=== PATIENT | female | born 1945 | race Caucasian/White ===

== ENCOUNTER 2018-12-14 09:11 | Emergency (ER) | payer MEDICARE, BC ==
--- OUTSIDE RECORDS SUMMARY | 2018-12-14 09:18 | XMS REPORT | Summary of Care ---
:1945 Author Organization [facility] Address [address] [address] Care Team Providers Name Role Phone Marva Penny MD Primary Care Provider Reason for Visit Reason Comments Physical pap 11-27-13, mammo 08-02-16, dexa 12-16-15, colonoscopy 02-02-11 repeat 5 years Proteinuria f/u Encounter Details Date Type Department Care Team Description 11/07/2018 Office Visit [place] [facility] Marva Penny MD Proteinuria, unspecified type (Primary Dx); Medicine [address] Malignant neoplasm of right female breast, unspecified estrogen receptor status, unspecified site of breast (HCC); [address] [place] [address] Routine general medical examination at a health care facility; [place] [address] Encounter for gynecological examination; [phone] Encounter for screening for malignant neoplasm of breast; (Fax) Lipid disorder Allergies Active Allergy Reactions Severity Noted Date Comments Demerol 12/13/2007 documented as of this encounter (statuses as of 11/07/2018) Medications Medication Sig Dispensed Refills Start Date End Date Status GLUCOSAMINE CHONDROITIN Take by mouth 0 Active Oral Tab DAILY. Probiotic Product Take 1 Cap by 0 Active (PROBIOTIC ADVANCED PO) mouth DAILY. Cholecalciferol (VITAMIN Take by mouth 0 Active D-3) 1000 UNITS Oral Cap DAILY. raNITIdine HCl Take by mouth. 0 Active (RANITIDINE 75 PO) fexofenadine (EBONY Take 180 mg by 0 Active ALLERGY) 180 MG Oral Tab mouth DAILY. documented as of this encounter (statuses as of 11/07/2018) Active Problems Problem Noted Date Malignant neoplasm of female breast 06/04/2016 Overview: Stage !A- Right breast - lymphnode negative 6mm CO/ ER post - Refused radiation / tried and refused Aromatase I Started with [facility] but does not see reasont to go back Will need follow up mammogram / annual CXR - blood work Lung nodules 06/04/2016 Overview: 02/26 - Ct scan 3mm right lower lobe nodule / 2mm left lower lobe - - By lopez recommendation no follow up in low risk situtaion - Vitamin D deficiency 12/20/2007 Family history of colon cancer 12/13/2007 ELEVATED HDL 12/13/2007 documented as of this encounter (statuses as of 11/07/2018) Immunizations Name Administration Dates Next Due TDAP Vaccine 10/27/2009 documented as of this encounter Social History Tobacco Use Types Packs/Day Years Used Date Never Smoker Smokeless Tobacco: Never Used Alcohol Use Drinks/Week oz/Week Comments No Sex Assigned at Date Recorded Not on file Job Start Date Occupation Industry Not on file Not on file Not on file Travel History Travel Start Travel End No recent travel history available. documented as of this encounter Last Filed Vital Signs Vital Sign Reading Time Taken Comments Blood Pressure 137/86 11/07/2018 10:12 AM EDT Pulse 72 11/07/2018 10:12 AM EDT Temperature - - Respiratory Rate - - Oxygen Saturation 97% 11/07/2018 10:12 AM EDT Inhaled Oxygen Concentration - - Weight 57.2 kg (126 lb) 11/07/2018 10:12 AM EDT Height 163.8 cm (5' 4.5") 11/07/2018 10:12 AM EDT Body Mass Index 21.29 11/07/2018 10:12 AM EDT documented in this encounter Patient Instructions Patient InstructionsMarva Penny MD - 11/07/2018 10:00 AM EDTSteroid nasal spray (flonase ) - Try for 1 week or inhalers- E.g. Budesonide Heart healthy lifestyle- Exercise- minimum of 40 min 4 x week- do some thing you like to do ; strength and balance training Good night sleep - average person needs 8 hr Eat smart- watch cholesterol - dont overdo the carbs Smile!!!! Good spirit makes endorphins and all the rest work and worthwhile documented in this encounter Progress Notes Marva Penny MD - 11/07/2018 10:00 AM EDT PATIENT: Song Knox DATE: 11/07/2018 Song Knox is a 73-y.o. female presents for routine physical exam and Also, she has additional complaints of 1. Taking pumpkin seed extract for bladder incontinence ( AZO) 2. Chronic cough - Went to [facility]- no allergy found- Was tried on omeprazole - Ranitidine - did not help cough 3. Stress incontinence to cough- trial of ebony - - has tried others with temporary help only - Does not cough at night- Coughs when talks / laughs Has post nasal drip - Was tried on ipatroprium / inhalers - but no steroid nasal spray . Patient Active Problem List Diagnosis Family history of colon cancer ELEVATED HDL Vitamin D deficiency Malignant neoplasm of female breast (HCC) Lung nodules Exercize No MALONEY. No cardiopulmonary symptoms as dyspnea, cough. palpitations, or chest pain on exertion. No upper or lower GI complaints as heartburn, abdominal pain, change in bowel habits, black or bloody stools. No urinary tract symptoms or incontinence. No symptoms as nocturia, discharge No bruising/ bleeding. No neurological complaints as dysphagia, imbalance, vertigo , focal weakness. No insomnia.+ Rested after nights sleep. No depression. Does not stop breathing at night. Current Outpatient Medications Medication Sig Cholecalciferol (VITAMIN D-3) 1000 UNITS Oral Cap Take by mouth DAILY. fexofenadine (EBONY ALLERGY) 180 MG Oral Tab Take 180 mg by mouth DAILY. GLUCOSAMINE CHONDROITIN Oral Tab Take by mouth DAILY. Probiotic Product (PROBIOTIC ADVANCED PO) Take 1 Cap by mouth DAILY. raNITIdine HCl (RANITIDINE 75 PO) Take by mouth. No current facility-administered medications for this visit. Social History Socioeconomic History Marital status: Spouse name: Not on file Number of children: Not on file Years of education: Not on file Highest education level: Not on file Occupational History Not on file Social Needs Financial resource strain: Not on file Food insecurity: Worry: Not on file Inability: Not on file Transportation needs: Medical: Not on file Non-medical: Not on file Tobacco Use Smoking status: Never Smoker Smokeless tobacco: Never Used Substance and Sexual Activity Alcohol use: No Drug use: No Sexual activity: Yes Partners: Male Lifestyle Physical activity: Days per week: Not on file Minutes per session: Not on file Stress: Not on file Relationships Social connections: Talks on phone: Not on file Gets together: Not on file Attends voodoo service: Not on file Active member of club or organization: Not on file Attends meetings of clubs or organizations: Not on file Relationship status: Not on file Intimate partner violence: Fear of current or ex partner: Not on file Emotionally abused: Not on file Physically abused: Not on file Forced sexual activity: Not on file Other Topics Concern Not on file Social History Narrative Not on file Family History Problem Relation Age of Onset Cancer Father LUNG OBJECTIVE: BP 137/86 | Pulse 72 | Ht 5' 4.5" (1.638 m) | Wt 126 lb (57.2 kg) | SpO2 97 % | BMI 21.29 kg/m Gen well Heent: ears TM and canals normal eyes Perrl; EOMI oroph-wnl Neck- no JVD,thyromegaly, bruit or lymphademopathy No supraclavicular, axillary or inguinal lymphadenopathy Lungs-clear to auscultation CV RRR no Murmur, gallop or clilck Breasts-no masses or diimpling (examined supine and sitting) Abd. nontender; no organomegaly, abnormal pulsations , bowel sounds normoactive b\\defer to age - Ext-no edema; rash, DP +2 skin- no rashes or suspicious lesions Neuro- intellect intact; CN II.XII intact; U&LE-strength wnl gait nl A/P ICD-9-CM ICD-10-CM 1. Proteinuria, unspecified type 791.0 R80.9 URINE DIP MANUAL (AMB POCT) 2. Malignant neoplasm of right female breast, unspecified estrogen receptor status, unspecified siteof breast (HCC) 174.9 C50.911 3. Routine general medical examination at a health care facility V70.0 Z00.00 4. Encounter for gynecological examination V72.31 Z01.419 5. Encounter for screening for malignant neoplasm of breast V76.10 Z12.31 Breast self-exam and bone health recommendations were made Chief Complaint Patient presents with Physical pap 11-27-13, mammo 08-02-16, dexa 12-16-15, colonoscopy 02-02-11 repeat 5 years Proteinuria f/u Mammo-- Refuse mammogram - Colon- refruse DT PAP DEXA EKG Author: Marva Penny MD documented in this encounter Plan of Treatment Name Type Priority Associated Diagnoses Order Schedule CBC WITH DIFFERENTIAL Lab Routine Malignant neoplasm of Expected: 2018 right female breast, (Approximate), unspecified estrogen Expires: 05/06/2019 receptor status, unspecified site of breast (HCC) LIPID PROFILE Lab Routine Lipid disorder Expected: 11/07/2018 (Approximate), Expires: 05/06/2019 BASIC METABOLIC PANEL Lab Routine Malignant neoplasm of Expected: 2018 right female breast, (Approximate), unspecified estrogen Expires: 05/06/2019 receptor status, unspecified site of breast (HCC) COMPREHENSIVE METABOLIC Lab Routine Malignant neoplasm of Expected: 2018 PANEL right female breast, (Approximate), unspecified estrogen Expires: 05/06/2019 receptor status, unspecified site of breast (HCC) Health Maintenance Due Date Last Done Comments HIV SCREENING 01/14/1960 COLONOSCOPY SCREENING 1963 ZOSTER IMMUNIZATION SERIES 1995 (1 of 2) PNEUMOCOCCAL 65+YRS (1 of 2 2010 - PCV13) MEDICARE ANNUAL WELLNESS 07/30/2016 07/31/2015, 07/31/2015, VISIT 11/27/2013, Additional history exists MAMMOGRAM (SCREENING) 08/02/2017 08/02/2016, 08/25/2015, 07/30/2015, Additional history exists DEPRESSION SCREENING 11/08/2019 11/07/2018 FALL RISK ASSESSMENT 11/08/2019 11/07/2018, 11/07/2018 LIPID DISORDER SCREENING 08/06/2020 08/07/2015, 11/27/2013, 09/15/2012, Additional history exists OSTEOPOROSIS SCREENING 12/15/2025 12/16/2015, 02/11/2011 HPV IMMUNIZATION SERIES Aged Out No longer eligible based on patient's age to complete this topic MENINGOCOCCAL VACCINE IMM Aged Out No longer eligible based on patient's age to complete this topic documented as of this encounter Procedures Procedure Name Priority Date/Time Associated Diagnosis Comments URINE DIP MANUAL Routine 11/07/2018 10:25 AM Proteinuria, Results for this (AMB POCT) EDT unspecified type procedure are in the results section. documented in this encounter Results URINE DIP MANUAL (AMB POCT) (11/07/2018 10:25 AM EDT) URINE GLUCOSE (POCT) Negative Negative mg/dl [facility] POCT URINE BILIRUBIN Negative Negative [facility] (POCT) POCT Urine Ketones (POCT) Negative Negative [facility] POCT URINE SPECIFIC 1.005 1.005 - 1.030 [facility] GRAVITY (POCT) POCT URINE BLOOD (POCT) Negative Negative [facility] POCT URINE PH (POCT) 1.0 (A) 5.0 - 8.0 [facility] POCT URINE PROTEIN (POCT) Negative Negative mg/dl [facility] POCT URINE UROBILINOGEN 0.2 0.2 - 1.0 mg/dl [facility] (POCT) POCT URINE NITRITES (POCT) Negative Negative [facility] POCT URINE LEUKOCYTES Negative Negative Cells/uL [facility] (POCT) POCT Specimen Urine Performing Organization Address City/State/[facility] Phone Number [facility] [address] [place] [address] documented in this encounter Visit Diagnoses Diagnosis Proteinuria, unspecified type - Primary Malignant neoplasm of right female breast, unspecified estrogen receptor status , unspecified site of breast (HCC) Routine general medical examination at a health care facility Encounter for gynecological examination Encounter for screening for malignant neoplasm of breast 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
[2018-12-14 09:26] VITALS: BP 138/76
--- NOTE | 2018-12-14 10:18 | UC ---
Hand/Wrist HPI - HPI Summary HPI Summary: Patient presents to urgent care for evaluation treatment for left wrist. Patient states she got up at this morning when her leg had a cramp. Patient states she lost her balance And fell. Did not strike her head. Then on her buttock. No loss of consciousness. No blood HEENT. No neck or back pain. No muscle trimming a weakness. No paresthesias. Patient states she's had persistent pain in her left wrist after taking 600 of Motrin as well as naproxen. Patient scheduled to leave town this afternoon when have it checked. Patient is right-hand dominant. No swelling. No ice applied. Patient's medications reviewed this visit. - History Of Current Complaint Chief Complaint: UCUpperExtremity Stated Complaint: WRIST INJURY Time Seen by Provider: 12/14/18 10:11 Hx Obtained From: Patient ?: No Onset/Duration: Sudden Onset Severity Initially: Mild Severity Currently: Moderate Pain Intensity: 4 - Allergies/Home Medications Allergies/Adverse Reactions: Allergies Allergy/AdvReac Type Severity Reaction Status Date / Time meperidine Allergy GI Upset Verified 12/14/18 09:34 PMH/Surg Hx/FS Hx/Imm Hx Previously Healthy: Yes - Surgical History Surgical History: Yes Surgery Procedure, Year, and Place: 1979 BILATERAL TUBAL LIG[place] [facility] [place] CATARACT REMOVAL BILAT 12/2013 [facility] [place] TONSILLECTOMY 1950 - Family History Known Family History: Positive: Non-Contributory - Social History Alcohol Use: Daily Alcohol Amount: 1-2 GLASSES/DAY Substance Use Type: None Smoking Status (MU): Never Smoked Tobacco Have You Smoked in the Last Year: No Review of Systems All Other Systems Reviewed And Are Negative: Yes Constitutional: Positive: Negative Skin: Positive: Negative Musculoskeletal: Positive: Other: - Left wrist Neurological: Positive: Negative Is Patient Immunocompromised?: No Physical Exam - Summary Physical Exam Summary: Vital Signs Reviewed: Yes A+Ox3, no distress Eyes: Conjunctiva Clear, JUAN. EOM intact and full ENT: Hearing grossly normal TM x 2 clear, mmoist, uvula midline, no exudate, no erythema Neck: Positive: Supple Respiratory: Positive: No respiratory distress, No accessory muscle use + CTA throughout no w/r Cardiovascular: RRR nl s1, s2 no m/r CBT <2 sec abd soft + BS nt/nd no guarding, no distension Musculoskeletal Exam: No spinous process pain c/t/l/s Full AROM c spine upper ext b/l shoulder + flex/ext elbow + TTP distal radius no pain ulna no pain carpals, metacarpals Neurological: Positive: Alert, + sensation throughout + thumb up, a ok, finger spread Psychological: Positive: Normal Response To examiner Skin: Positive: no rash, no ecchymosis, no edema Triage Information Reviewed: Yes Vital Signs: Initial Vital Signs Temp 97.6 F 12/14/18 09:21 Pulse 96 12/14/18 09:21 Resp 16 12/14/18 09:21 BP 138/76 12/14/18 09:21 Pulse Ox 98 12/14/18 09:21 Diagnostics - Radiology No standard instances Radiology Interpretation Completed By: Radiologist - Patient Name: FREDDIE KAPLAN Medical Record#: [id number] Ordering Physician: April Rehman MD Acct.#: [id number] : 1945 Age: 73 Sex: F Location: [facility] Exam Date: 12/14/18944 ADM Status: REG ER Order Information: WRIST LEFT 3+ VWS Accession Number: [id number] CPT: 38501 HISTORY: fall, pain right wrist, hand . COMPARISONS: None relevant available at the time of dictation. VIEWS: 4, Frontal, lateral, oblique, and scaphoid deviation views of the left wrist FINDINGS: BONE DENSITY: There is diffuse osteopenia. BONES: There is a linear lucency consistent with a nondisplaced fracture of the distal radial metaphysis. JOINTS: There is no arthropathy. ALIGNMENT: There is no dislocation. SOFT TISSUES: Unremarkable. OTHER FINDINGS: None. IMPRESSION: 1. NONDISPLACED FRACTURE OF THE DISTAL RADIAL METAPHYSIS. 2. OSTEOPENIA. 3. THE DEGREE OF OSTEOPENIA MAY MAKE A NONDISPLACED FRACTURES RADIOGRAPHICALLY OCCULT. IF THERE IS PERSISTENT CLINICAL EXAM FOR SCAPHOID FRACTURE, MRI MAY BE MORE SENSITIVE. < Electronically signed by Sony Lyn MD in OV> 12/14/18 1014 Dictated By: Sony Lyn MD Dictated Date/Time: 12/14/18 1011 Transcribed Date/ Time: 12/14/18 1011 Copy to: CC:April Rehman MD; Marva Penny MD Imaging - [facility] - [facility] [id number] [place] [id number] [place] [id number] ph ([phone]) ph ([phone]) ph ([phone]) This report is only to be considered final once signed by the Provider(s) as displayed in the "<Electronically Signed by >" field (s). Absence of a signature indicates the report is in a draft status and still needs to be finalized. In the event this document was created by someone other than the signing Provider, the individual initiating the document will be listed in the "Entered by:" or "Dictated by:" kapadia. 1 of 1 Hand/Wrist Course/Dx - Course Course Of Treatment: Patient presents to urgent care for evaluation of a left wrist. Patient's right hand. Patient had a mechanical fall this morning. Patient with pain over since. Patient did take Motrin and naproxen. On exam vital signs are stable. Patient without any other complaints or focal findings or than pain in her distal radius. I did discuss with patient Motrin and naproxen being similar importance of taking with food and not taken together. Patient states understanding. Review of imaging shows patient has a nondisplaced distal radius fracture. Patient hesitant to have a splint made. Will use a thumb spica 35. Patient states agreement with the plan. Patient will contact orthopedist today for follow-up on Tuesday she is leaving town this afternoon. Return precautions discussed. Discussed with patient with increasing pain over the next 1-2 days. Recommend adding Tylenol to her regimen. Ice. Return precautions. Patient comfortable with the plan. - Differential Dx/Diagnosis Provider Diagnosis: Nondisplaced fracture of left radius Discharge ED - Sign-Out/Discharge Documenting (check all that apply): Patient Departure All imaging exams completed and their final reports reviewed: Yes - Discharge Plan Condition: Stable Disposition: HOME Patient Education Materials: Wrist Fracture in Adults (ED) Referrals: Liana Navas MD [Medical Doctor] - Marva Penny MD [Primary Care Provider] - Additional Instructions: - wear splint for comfort and support - wear at ALL times until you are evaluated by the application development specialist - Take your arm outside of your sling and fully bend/stretching of elbow and makes small circles at your shoulder as demonstrated in the urgent car -apply ice (20 min at a time) every 2-3 hours for the next 2 days -Okay to alternate ibuprofen (Advil, Motrin) and Tylenol (acetaminophen) every 3 hours for pain or fever. Take with food. Do NOT take for more than 4-5 days. -Contact the orthopedic provider today to schedule a follow-up appointment for early next week. Contact your doctor or return with questions or concerns - Billing Disposition and Condition Condition: STABLE Disposition: Home
== END 2018-12-14 10:47 | disposition home or self-care (01) ==
LOC: UCEAST 09:11
DX: S52.502A Unspecified fracture of the lower end of left radius, initial encounter for closed fracture (principal); W18.30XA Fall on same level, unspecified, initial encounter; Y92.009 Unspecified place in unspecified non-institutional (private) residence as the place of occurrence of the external cause; M85.832 Other specified disorders of bone density and structure, left forearm; Z88.5 Allergy status to narcotic agent
CPT/HCPCS: 99212; G0463